=== PATIENT | female | born 1990 | race Two or more races ===

== ENCOUNTER 2016-11-29 16:54 | Emergency (ER) | payer OTHER ==
[2016-11-29 17:05] VITALS: BP 189/112
--- NOTE | 2016-11-29 17:38 | PHYS DOC ---
General Chief Complaint: ABDOMINAL PAIN Stated Complaint: ABDOMINAL PAIN Time Seen by MD: 17:07 Source: patient Exam Limitations: no limitations Problems: History of Present Illness Initial Comments Patient is a 26-year-old female who comes to the emergency department complaining of right groin pain. Patient states she's had right sided adnexal/groin pain for the past 3 days. Symptoms are worse with resisted right sided hip flexion and improved at rest. Patient has history of polycystic ovarian syndrome with recurrent ovarian cysts , she denies nausea vomiting diarrhea fever chills sweats or myalgias. Last bowel movement was today described as normal, patient's appetite has been normal she says she had dinner right before coming to the emergency department. Symptoms are similar to prior ovarian cyst discomfort however patient states she is only uncomfortable when moving. She has no pain at rest. No bowel or bladder symptoms patient denies vaginal symptoms as well. She denies any trauma or strenuous activity but states that she did go to the gym earlier this week. Timing/Duration: other (3 days) Severity: mild Modifying Factors: worse with movement, improves with rest Associated Symptoms: other Allergies: Coded Allergies: No Known Drug Allergies (Unverified , 11/29/16) Past Medical History Medical History: other (PCOS, ovarian cyst, infertility) Surgical History: noncontributory Social History Smoker: non-smoker Alcohol: none Drugs: none Review of Systems Constitutional: denies chills, denies diaphoresis, denies fever, denies malaise Respiratory: denies cough, denies shortness of breath Cardiovascular: denies chest pain, denies palpitations, denies syncope Gastrointestinal: denies abdominal pain, denies constipation, denies diarrhea, denies nausea, denies vomiting Genitourinary: denies dysuria, denies frequency, denies hematuria, denies pain Musculoskeletal: denies back pain, denies joint swelling, denies neck pain Psychiatric/Neurological: denies headache, denies numbness, denies paresthesia Hematologic/Lymphatic: denies blood clots, denies easy bleeding, denies easy bruising Physical Exam General Appearance: no apparent distress, obese Ear, Nose, Throat: hearing grossly normal, normal ENT inspection Neck: non-tender, supple Respiratory: normal breath sounds, no respiratory distress Cardiovascular: normal peripheral pulses, regular rate, rhythm Gastrointestinal: normal bowel sounds, non tender, soft, no organomegaly Back: no CVA tenderness, no vertebral tenderness Extremities: non-tender, normal inspection Neurologic/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 I discussed lab and imaging workup, patient states she has to pick her boyfriend out from work. I discussed treatment options including supportive treatment and close PCP follow-up. Patient is agreeable see departure for instructions. Her vital signs did normalize once she calmed down upon ED arrival. Departure Time of Disposition: 17:39 Disposition: 01 HOME, SELF-CARE (:) Diagnosis: ovarian cyst Condition: GOOD Patient Instructions: Ovarian Cyst, [id number] Additional Instructions: Rest, no strenuous activity. Aggressive hydration with gatorade, water. Heating pad 20 minutes, 4-6 times daily followed by gentle stretching. Rx: naprosyn, tylenol #3 (10) Follow-up with your doctor in 2 days for recheck and further evaluation if necessary. Return to the ED with new or changing symptoms. NAE LEON DO Nov 29, 2016 17:38
[2016-11-29 17:42] LABS: BILIRUBIN,URINE NEG (NEG); CLARITY,URINE CLEAR; COLOR,URINE YELLOW
[2016-11-29 17:43] LABS: GLUCOSE,URINE NEG (NEG); NITRITE,URINE NEG (NEG); UROBILINOGEN,URINE 1 mg/dL (0.2 mg/dL)
[2016-11-29] MEDS ORDERED: ACETAMINOPHEN 500 MG TABLET PO ONE ×2 (17:45)
== END 2016-11-29 17:48 | disposition home or self-care (01) ==
LOC: ER 16:54
DX: N83.201 Unspecified ovarian cyst, right side (principal); E28.2 Polycystic ovarian syndrome
CPT/HCPCS: 81003; 99283

== ENCOUNTER 2020-08-12 18:16 | Emergency (ER) | payer OTHER ==
[~2020-08-12] VITALS: Ht 162.6 cm; Wt 156.3 kg
--- NOTE | 2020-08-12 18:18 | PHYS DOC ---
Past History Past Medical History: Anemia, Ovarian Cyst, STD, Other Past Surgical History: Other Alcohol Use: Occasionally Drug Use: Marijuana General Adult HPI: HPI: ".. I ve been bleeding for past two months... about the amount or more of a period.... " Patient is a 30 year old female who presents with above hx and complaints persistent vaginal bleeding for the past 2 months. [facility] and is currently under evaluation for this presentation. Patient does have a scheduled ultrasound this coming 08/16/2020. Patient denies any symptoms of an STD. Has previously had chlamydia which was treated. Has had 4 lifetime sex partners. No history of pregnancies. Does have a history of polycystic ovary disease. Has had a past history of anemia iron deficiency. Patient denies any trauma only one current partner that sex is unprotected. Has not had Gardasil vaccination. No recent travel. No specific ill contacts. No history immunosuppression. No history of hypo or hyperthyroidism. No history of abnormal prostaglandin or estrogen levels. Review of Systems: Review of Systems: Constitutional: Denies fever or chills Eyes: Denies change in visual acuity HENT: Denies nasal congestion or sore throat Respiratory: Denies cough or shortness of breath Cardiovascular: Denies chest pain or edema GI: Denies abdominal pain, nausea, vomiting, bloody stools or diarrhea : Denies dysuria . Complains of dysfunctional uterine bleeding Musculoskeletal: Denies back pain or joint pain Integument: Denies rash Neurologic: Denies headache, focal weakness or sensory changes Endocrine: Denies polyuria or polydipsia Lymphatic: Denies swollen glands Psychiatric: Denies depression or anxiety Family History: Family History: Noncontributory to presentation Current Medications: Current Meds: See nursing for home meds Allergies: Allergies: Allergies Coded Allergies Type Severity Reaction Last Updated Verified No Known Drug Allergies 11/29/16 No Physical Exam: PE: Constitutional: Mild acute distress, non-toxic appearance. [] HENT: Normocephalic, atraumatic, bilateral external ears normal, oropharynx moist, no oral exudates, nose normal. [] Eyes: PERRLA, EOMI, conjunctiva normal, no discharge. [] Neck: Normal range of motion, no tenderness, supple, no stridor. [] Prominent thyroid. Neck size more than 70 half inches Cardiovascular:Heart rate regular rhythm, no murmur [] Lungs & Thorax: Bilateral breath sounds clear to auscultation [] Abdomen: Bowel sounds normal, soft, no tenderness, no masses, no pulsatile masses. Obese. Skin: Warm, dry, no erythema, no rash. [] Tattoos. No petechiae. No excessive bruising Back: No tenderness, no CVA tenderness. [] Extremities: No tenderness, no cyanosis, no clubbing, ROM intact, no edema. [] Neurologic: Alert and oriented X 3, normal motor function, normal sensory function, no focal deficits noted. [] Psychologic: Affect anxious, judgement normal, mood normal. [] EKG: EKG: [] Radiology/Procedures: Radiology/Procedures: [] Heart Score: C/O Chest Pain: N/A Risk Factors: Risk Factors: DM, Current or recent (<one month) smoker, HTN, HLP, family history of CAD, obesity. Risk Scores: Score 0 - 3: 2.5% MACE over next 6 weeks - Discharge Home Score 4 - 6: 20.3% MACE over next 6 weeks - Admit for Clinical Observation Score 7 - 10: 72.7% MACE over next 6 weeks - Early Invasive Strategies Course & Med Decision Making: Course & Med Decision Making Pertinent Labs and Imaging studies reviewed. (See chart for details) Continue pad counts. Keep follow-up with [facility]. Keep follow-up for ultrasound. Return if any concerns. Follow-up pending cultures. Continue follow-up with [facility] [place] Impression: 1. Dysfunctional Uterine Bleeding [] Dragon Disclaimer: Dragon Disclaimer: This electronic medical record was generated, in whole or in part, using a voice recognition dictation system. Departure Departure: Referrals: PCP,UNKNOWN (PCP) Dragon Disclaimer This chart was dictated in whole or in part using Voice Recognition software in a busy, high-work load, and often noisy Emergency Department environment. It may contain unintended and wholly unrecognized errors or omissions. JUAN PABLO WILL MD Aug 12, 2020 18:18
[2020-08-12 18:25] VITALS: BP 157/89
[2020-08-12] MEDS ORDERED: IV RINGERS SOLUTION,LACTATED 1,000 ML IV SCH (18:45)
[2020-08-12 19:29] LABS: BASO % 1 % (0-3); EOS # 0.2 x10^3/uL (0.0-0.7); EOS % 2 % (0-3); HEMATOCRIT 34.5 % (36.0-47.0); LYMPH # 3.3 x10^3/uL (1.0-4.8); LYMPH % 36 % (24-48); MEAN CORPUSCULAR HEMOGLOBIN 24 pg (25-35); MEAN CORPUSCULAR HGB CONC 32 g/dL (31-37); MEAN CORPUSCULAR VOLUME 74 fL (79-100); MONO # 0.5 x10^3/uL (0.0-1.1); MONO % 5 % (0-9); NEUT # 5.3 x10^3uL (1.8-7.7); NEUT % 57 % (31-73); PLATELET COUNT 502 x10^3/uL (140-400); RED BLOOD COUNT 4.69 x10^6/uL (3.50-5.40); RED CELL DISTRIBUTION WIDTH 16.5 % (11.5-14.5); WHITE BLOOD COUNT 9.3 x10^3/uL (4.0-11.0)
[2020-08-12 19:34] LABS: BILIRUBIN,URINE NEG (NEG); CLARITY,URINE HAZY; COLOR,URINE AMBER; GLUCOSE,URINE NEG (NEG)
[2020-08-12 19:35] LABS: BACTERIA,URINE 0 /HPF (0-FEW); CALCIUM 9.7 mg/dL (8.5-10.1); CREATININE 0.9 mg/dL (0.6-1.0); GFR 74.6; NITRITE,URINE NEG (NEG); POTASSIUM 3.8 mmol/L (3.5-5.1); RBC,URINE TNTC /HPF (0-2); SQUAMOUS EPITHELIAL CELL,UR OCC /LPF; UROBILINOGEN,URINE 0.2 mg/dL (0.2 mg/dL); WBC,URINE 0 /HPF (0-4)
[2020-08-12 19:37] LABS: BARBITURATES NEG (NEG); BENZODIAZEPINES NEG (NEG); CANNABINOIDS NEG (NEG); COCAINE NEG (NEG); METHADONE NEG (NEG); OPIATES NEG (NEG); PHENCYCLIDINE NEG (NEG)
[2020-08-12 19:42] LABS: ALBUMIN 4.1 g/dL (3.4-5.0); DIRECT BILIRUBIN 0.1 mg/dL (0.0-0.2); TOTAL BILIRUBIN 0.3 mg/dL (0.2-1.0); TOTAL PROTEIN 8.5 g/dL (6.4-8.2)
[2020-08-12 19:46] LABS: AMPHETAMINE/METHAMPHETAMINE NEG (NEG)
== END 2020-08-12 20:35 | disposition home or self-care (01) ==
LOC: ER 18:16
DX: N93.8 Other specified abnormal uterine and vaginal bleeding (principal)
CPT/HCPCS: 36415; 80048; 80076; 80307; 81001; 81025; 84443; 84702; 85025; 86850; 86900; 86901; 87491; 87591; 96360; 99283; J7120